=== PATIENT | female | born 1950 | race American Indian/Alaskan Native ===

== ENCOUNTER 2021-07-20 08:06 | Outpatient (CLI) | payer MEDICARE ==
--- NOTE | 2021-07-20 11:12 | Mammography Report ---
DIGITAL SCREENING MAMMOGRAM WITH CAD, 07/20/2021 CLINICAL INFORMATION / INDICATION: Routine screening TECHNIQUE: Digital right 2D mammography was obtained in the craniocaudal and mediolateral oblique pr ojections. This examination was interpreted with the benefit of Computer-Aided Detection analysis. COMPARISON: 06/25/2020 FINDINGS: Breast Density: There are scattered areas of fibroglandular density. No dominant mass or architectural distortion in the right breast. On MLO view only in the posterior upper central breast, grouped microcalcifications appear to be incr easing in number. IMPRESSION: Possible increasing microcalcifications Follow up recommendation: Right magnification views BI-RADS Category 0: Incomplete. Needs additional imaging evaluation and/or prior mammograms for natalie rison. A "normal" or negative report should not discourage follow up or biopsy of a clinically significant f inding. A written summary of these findings will be mailed to the patient. The patient will be entered into a mammography reporting system which will generate a reminder letter for the patient's next appointmen t at the appropriate interval. The [employer] recommends yearly mammograms starting at age 40 and continuing as l kristian as a woman is in good health. Breast MRI is recommended for women with an approximate 20-25% or greater lifetime risk of breast cancer, including women with a strong family history of breast or ova mendez cancer or who have been treated for Hodgkin's disease. Signer Name: Micah Greco MD Signed: 07/20/2021 11:07 AM Workstation Name: [id number]
== END 2021-07-20 08:07 | disposition home or self-care (01) ==
LOC: SPVWC 08:06
PROVIDERS: ATTEND Surgery
DX: Z12.31 Encounter for screening mammogram for malignant neoplasm of breast (principal)